=== PATIENT | male | born 1940 | race Caucasian/White ===

== ENCOUNTER 2016-10-05 06:54 | Day surgery (SDC) | payer MEDICARE, OTHER ==
[~2016-10-05] VITALS: Ht 177.8 cm; Wt 85.5 kg
[~2016-10-05 06:54] MED LIST: AMLO10TA2 PO; ASPI-557 PO; CALC-191 PO; FEXO1TAB11 PO; FLUT9.9S EA NOSTRIL; HYDR25TA PO; MULT-933 PO; RED600TA PO; UBID10CA6 PO
[2016-10-05] MEDS ORDERED: PROPOFOL 500mg 50 ML IV ONE (06:59)
--- OUTSIDE RECORDS SUMMARY | 2016-10-05 06:59 | XMS REPORT | Referral Summary ---
Author Author [facility] Organization [facility] Address Unknown Phone Unavailable Care Team Providers Care Well Driller Helper Name Role Phone Asif Holden Primary Care Physician [phone] Encounter [facility] [id number] Date(s): 01/01/15 - 01/01/15 [facility] [address] [place] [address] [facility] Discharge Diagnosis: Hyperthyroidism Discharge Disposition: 01-Home or Self Care Attending Physician: Turner Pruitt MD Admitting Physician: Turner Pruitt MD Vital Signs Most recent to 1 oldest [Reference Range]: Peripheral Pulse 67 bpm Rate [60-100 bpm] (01/01/15 10:31 AM) Blood Pressure 120/60 mmHg [90-140/60-90 mmHg] (01/01/15 10:31 AM) Problem List Condition Effective Dates Status Health Status Informant HTN (hypertension), Active benign(Confirmed) Blood pressure Resolved elevated(Confirmed) Hepatitis(Confirmed) Resolved Jaundice(Confirmed) Resolved Osteoarthritis(Confi Resolved rmed) OTHER ACUTE Resolved INFECTIONS OF EXTERNAL EAR(Confirmed) Varicella Resolved zoster(Confirmed) Allergies, Adverse Reactions, Alerts No Known Medication Allergies Medications Advil mg, Oral, 0 Refill(s) Start Date: 11/08/13 Status: Ordered Sona 24 Hour Allergy mg, Oral, Daily, 0 Refill(s) Start Date: 11/08/13 Status: Ordered amLODIPine 10 mg oral tablet See Instructions, TAKE ONE TABLET BY MOUTH ONCE A DAY, # 30 tabs, 3 Refill(s), eRx: [facility] #[id number], TAKE ONE TABLET BY MOUTH ONCE A DAY Start Date: 10/04/14 Status: Ordered Aspir 81 mg, Oral, Daily, 0 Refill(s) Start Date: 11/08/13 Status: Ordered Calcium 600+D tabs, Oral, TID, 0 Refill(s) Start Date: 11/08/13 Status: Ordered elppa CoQ10 10 mg, Oral, Daily, as per label instructions, 0 Refill(s) Start Date: 11/29/13 Status: Ordered Fish Oil Oral, 0 Refill(s) Start Date: 11/08/13 Status: Ordered flex-sure flex-sure, 0 Refill(s) Start Date: 01/01/15 Status: Ordered garlic 0 Refill(s) Start Date: 11/08/13 Status: Ordered hydrochlorothiazide 25 mg oral tablet See Instructions, TAKE ONE TABLET BY MOUTH EVERY DAY, # 90 tabs, 1 Refill(s), eRx: [facility] #[id number], TAKE ONE TABLET BY MOUTH EVERY DAY Start Date: 12/13/14 Status: Ordered losartan 50 mg oral tablet See Instructions, TAKE ONE TABLET BY MOUTH DAILY, # 30 tabs, 1 Refill(s), eRx: [facility] #[id number], TAKE ONE TABLET BY MOUTH DAILY Start Date: 04/09/15 Status: Ordered methimazole 10 mg oral tablet See Instructions, TAKE 1/2 TABLET BY MOUTH ONCE DAILY, # 15 tabs, 1 Refill(s), eRx: [facility] #[id number], TAKE 1/2 TABLET BY MOUTH ONCE DAILY Start Date: 03/29/15 Status: Ordered Misc Medication 0 Refill(s) Start Date: 02/12/15 Status: Ordered multivitamin Daily, 0 Refill(s) Start Date: 11/08/13 Status: Ordered Pomegranat Supplement Pomegranat Supplement, 0 Refill(s) Start Date: 07/05/14 Status: Ordered red yeast rice mg, Oral, Daily, 0 Refill(s) Start Date: 11/08/13 Status: Ordered Results No data available for this section Immunizations Vaccine Date Refusal Reason hepatitis B adult vaccine 12/15/05 hepatitis B adult vaccine 11/05/05 influenza virus vaccine, inactivated1 05/02/14 influenza virus vaccine, live 04/21/13 influenza virus vaccine, live 04/18/12 pneumococcal 23-polyvalent vaccine 11/05/05 tetanus-diphth toxoids (Td) adult/adol 01/10/08 1Result Comment: [05/02/2014] see scaned doc Procedures Procedure Date Related Diagnosis Body Site Colonoscopy H/O vasectomy Social History Social History Type Response Smoking Status Former smoker1 1quit in 1989 Assessment and Plan Extracted from: Title: Office Visit Note Author: Turner Pruitt MD Date: 01/01/15 Assessment/Plan Toxic multinodular goiter. Plan: Continue methimazole 5 mg daily. Monitor thyroid function tests and adjust methimazole as needed. Definitive interventions like thyroidectomy and I-131 therapy discussed. Patient has been very pleased with the result of low dose methimazole and would like to stay on this regimen for now. Return to clinic again in 6 months, sooner if with problems. Extracted from: Title: Ambulatory Patient Education Author: Turner Pruitt MD Date: Family Medicine Hyperthyroidism The thyroid is a large gland located in the lower front part of your neck. The thyroid helps control metabolism. Metabolism is how your body uses food. It controls metabolism with the hormone thyroxine. When the thyroid is overactive, it produces too much hormone. When this happens, these following problems may occur: Nervousness Heat intolerance Weight loss (in spite of increase food intake) Diarrhea Change in hair or skin texture Palpitations (heart skipping or having extra beats) Tachycardia (rapid heart rate) Loss of menstruation (amenorrhea) Shaking of the hands CAUSES Grave's Disease (the immune system attacks the thyroid gland). This is the most common cause. Inflammation of the thyroid gland. Tumor (usually benign) in the thyroid gland or elsewhere. Excessive use of thyroid medications (both prescription and 'natural'). Excessive ingestion of Iodine. DIAGNOSIS To prove hyperthyroidism, your caregiver may do blood tests and ultrasound tests. Sometimes the signs are hidden. It may be necessary for your caregiver to watch this illness with blood tests, either before or after diagnosis and treatment. TREATMENT Short-term treatment There are several treatments to control symptoms. Drugs called beta blockers may give some relief. Drugs that decrease hormone production will provide temporary relief in many people. These measures will usually not give permanent relief. Definitive therapy There are treatments available which can be discussed between you and your caregiver which will permanently treat the problem. These treatments range from surgery (removal of the thyroid), to the use of radioactive iodine (destroys the thyroid by radiation), to the use of antithyroid drugs (interfere with hormone synthesis). The first two treatments are permanent and usually successful. They most often require hormone replacement therapy for life. This is because it is impossible to remove or destroy the exact amount of thyroid required to make a person euthyroid (normal). HOME CARE INSTRUCTIONS See your caregiver if the problems you are being treated for get worse. Examples of this would be the problems listed above. SEEK MEDICAL CARE IF: Your general condition worsens. MAKE SURE YOU: Understand these instructions. Will watch your condition. Will get help right away if you are not doing well or get worse. Document Released: 05/24/2006 Document Revised: 08/15/2012 Document Reviewed: ExitCare Patient Information 2015 [employer], [employer]. This information is not intended to replace advice given to you by your health care provider. Make sure you discuss any questions you have with your health care provider. No follow up information was provided.
--- OUTSIDE RECORDS SUMMARY | 2016-10-05 06:59 | XMS REPORT | Referral Summary ---
Author Author [facility] Organization [facility] Address Unknown Phone Unavailable Care Team Providers Care Surgeon Partner Name Role Phone Asif Holden Primary Care Physician [phone] Encounter [facility] [id number] Date(s): 01/01/15 - 01/01/15 [facility] [address] [place] [address] [facility] Discharge Diagnosis: Hyperthyroidism Discharge Disposition: 01-Home or [...] DAY, # 30 tabs, 3 Refill(s), eRx: [facility] #[id number], TAKE ONE TABLET BY MOUTH ONCE A [...] DAY, # 90 tabs, 1 Refill(s), eRx: [facility] #[id number], TAKE ONE TABLET BY MOUTH EVERY DAY Start Date: 12/13/14 Status: Ordered losartan 50 mg oral tablet See Instructions, TAKE ONE TABLET BY MOUTH DAILY, # 30 tabs, 1 Refill(s), eRx: [facility] #[id number], TAKE ONE TABLET BY MOUTH DAILY Start Date: 04/09/15 Status: Ordered methimazole 10 mg oral tablet See Instructions, TAKE 1/2 TABLET BY MOUTH ONCE DAILY, # 15 tabs, 1 Refill(s), eRx: [facility] #[id number], TAKE 1/2 TABLET BY MOUTH ONCE DAILY [...] 08/15/2012 Document Reviewed: ExitCare Patient Information 2015 [employer], [employer]. This information is not intended to replace advice given to you by your health care provider. Make sure you discuss any questions you have with your health care provider. No follow up information was provided.
[2016-10-05] MEDS ORDERED: LIDOCAINE 1% (10mg/ml) 2ml SDV INJ ONE (07:00)
[2016-10-05] MEDS ORDERED: LR 1,000 ML IV SCH (07:00)
--- OUTSIDE RECORDS SUMMARY | 2016-10-05 07:00 | XMS REPORT | Referral Summary ---
Author Author [facility] Organization [facility] Address Unknown Phone Unavailable Care Team Providers Care Product Marketing Programs Manager Name Role Phone Asif Holden Primary Care Physician [phone] Encounter [facility] [id number] Date(s): 01/01/15 - 01/01/15 [facility] [address] [place] [address] [facility] Discharge Diagnosis: Hyperthyroidism Discharge Disposition: 01-Home or [...] # 30 tabs, 3 Refill(s), eRx: [facility] #[id number], TAKE ONE TABLET BY MOUTH ONCE A [...] # 90 tabs, 1 Refill(s), eRx: [facility] #[id number], TAKE ONE TABLET BY MOUTH EVERY DAY Start Date: 12/13/14 Status: Ordered losartan 50 mg oral tablet See Instructions, TAKE ONE TABLET BY MOUTH DAILY, # 30 tabs, 1 Refill(s), eRx: [facility] #[id number], TAKE ONE TABLET BY MOUTH DAILY Start Date: 04/09/15 Status: Ordered methimazole 10 mg oral tablet See Instructions, TAKE 1/2 TABLET BY MOUTH ONCE DAILY, # 15 tabs, 1 Refill(s), eRx: [facility] #[id number], TAKE 1/2 TABLET BY MOUTH ONCE DAILY [...] 08/15/2012 Document Reviewed: ExitCare Patient Information 2015 [employer], [employer]. This information is not intended to replace advice given to you by your health care provider. Make sure you discuss any questions you have with your health care provider. No follow up information was provided.
--- OUTSIDE RECORDS SUMMARY | 2016-10-05 07:00 | XMS REPORT | Continuity of Care Document ---
Author Author [facility] Address Unknown Phone Unavailable Care Team Providers Care Revenue Accounting Manager Name Role Phone Snow Nguyen KIMBER Unavailable Payers Payer name Insurance type Covered libertarian ID Authorization(s) Unknown Problems Condition Effective Dates (start - stop) Clinical Status Thyrotoxicosis without mention of goiter or other cause, and without mention of thyrotoxic crisis or storm - *Stable Influenza Vaccine - Hypertension, Benign - *Chronic Thyrotoxicosis without mention of goiter or other cause, and without mention of thyrotoxic crisis or storm - *Routine Hypertension, Unspecified - *Chronic Right facial swelling - *Acute Thyrotoxicosis without mention of goiter or other cause, and without mention of thyrotoxic crisis or storm - *Routine Thyrotoxicosis without mention of goiter or other cause, and without mention of thyrotoxic crisis or storm - Improved BENIGN HYPERTENSION - Thyrotoxicosis without mention of goiter or other cause, and without mention of thyrotoxic crisis or storm - *Routine Thyrotoxicosis without mention of goiter or other cause, and without mention of thyrotoxic crisis or storm - *Routine Family History Family Member Diagnosis Age At Onset Status Mother (Unknown) of infection Yes Father (Unknown) Suicide Yes Brother (Unknown) brain aneurysm Yes Sister (Unknown) CVA (Stroke) Yes Social History Social History Element Description Quantity Unknown Allergies, Adverse Reactions, Alerts Substance Reaction Severity Status Unknown Medications Medication Instructions Dosage Effective Dates (start - stop) Status benazepril 40 mg tablet Take 1 tablet by mouth every day. - Active Advil 200 mg tablet take 1 - 2 Tablet (200MG) by oral route 2 times every day as needed with food 200 MG - Active calcium 500 mg tablet take 1 by Oral route every day 0 - Active take by Oral route every day - Active Pomegranate-[employer] & Grape Seed 100 mg-60 mg-5 mg-5 mg capsule take 1 tablet by oral route every day. - Active garlic capsule take 1 by Oral route every day 0 - Active multivitamin tablet take 1 Tablet by Oral route every day 0 - Active Aspir-81 81 mg tablet,delayed release take 1 tablet (81MG) by oral route every day 81 MG - Active red yeast rice 600 mg tablet take 1 tablet by oral route every day. - Active glucosamine-chondroitin 500 mg-400 mg tablet take 1 tablet by oral route every day. - Active [place] 500 mg capsule take 1 capsule by oral route every day. - Active Sona 180 mg tablet take 1 tablet (180MG) by oral route PRN. 2011 - Active hydrochlorothiazide 25 mg tablet Take 1 tablet by mouth every day. 2012 - Active methimazole 10 mg tablet take 1 tablet (10MG) by oral route every day 10 MG - Active amlodipine 5 mg tablet Take 1 tablet by mouth every day. - Active Fish Oil 1,000 mg capsule take 1 Tablet by Oral route every day 0 - Active Benadryl 25 mg capsule take 1 Capsule (25MG) by oral route every bedtime as needed 25 MG - Active Immunizations Vaccine Date Status Comments Flu (split) (3 yrs or older) completed flu (split) (3 yrs or older) completed - Completed reason: public agency Results Test Name Date and Time Measure Units Reference Range Abnormal Flag Comments Unknown Vital Signs Date / Time: Height Weight Pulse Rate Blood Pressure Temperature /15:45:00 71.22 in 182.80 lbs 76 /min 140/88 mm[Hg] Procedures Procedure Date Unknown Encounters Encounter Location Date Patient Visit [facility] Patient Visit [facility] Patient Visit [facility] Patient Visit [facility] Patient Visit [facility] Patient Visit [facility] Patient Visit [facility] Patient Visit [facility] Patient Visit [facility] Patient [facility] Patient Visit [facility] Patient Visit [facility] Advance Directives Directive Effective Date Unknown
--- OUTSIDE RECORDS SUMMARY | 2016-10-05 07:00 | XMS REPORT | Referral Summary ---
Author Author [facility] Organization [facility], [facility] Address Unknown Phone Unavailable Care Team Providers Care Supply Chain Business Analyst Name Role Phone Asif Holden Primary Care Physician [phone] Encounter [facility] Date(s): 02/12/15 - 02/12/15 [facility], Family [address] [place] [id number] Discharge Diagnosis: HTN (hypertension), benign Discharge Disposition: 01-Home or Self Care Attending Physician: Ej Holden MD Admitting Physician: Ej Holden MD Vital Signs Most recent to 1 oldest [Reference Range]: Temperature Tympanic 36.4 degC [36.6-38.1 degC] *LOW* (02/12/15 1:52 PM) Peripheral Pulse 67 bpm Rate [60-100 bpm] (02/12/15 1:52 PM) Blood Pressure 138/85 mmHg [90-140/60-90 mmHg] (02/12/15 1:52 PM) Problem List Condition Effective Dates Status Health Status Informant HTN (hypertension), Active benign(Confirmed) Blood pressure Resolved elevated(Confirmed) Hepatitis(Confirmed) Resolved Jaundice(Confirmed) Resolved Osteoarthritis(Confi Resolved rmed) OTHER ACUTE Resolved INFECTIONS OF EXTERNAL EAR(Confirmed) Seasonal allergic Active rhinitis(Confirmed) Varicella Resolved zoster(Confirmed) Allergies, Adverse Reactions, Alerts No Known Medication Allergies Medications Advil mg, Oral, 0 Refill(s) Start Date: 11/08/13 Status: Ordered Sona 24 Hour Allergy mg, Oral, Daily, 0 Refill(s) Start Date: 11/08/13 Status: Ordered amLODIPine 10 mg oral tablet See Instructions, TAKE ONE TABLET BY MOUTH ONCE A DAY, # 30 tabs, 3 Refill(s), Pharmacy: [facility] #[id number], TAKE ONE TABLET BY MOUTH ONCE A DAY Start Date: 06/04/15 Status: Ordered Aspir 81 mg, Oral, Daily, 0 Refill(s) Start Date: 11/08/13 Status: Ordered Calcium 600+D tabs, Oral, TID, 0 Refill(s) Start Date: 11/08/13 Status: Ordered elppa CoQ10 10 mg, Oral, Daily, as per label instructions, 0 Refill(s) Start Date: 11/29/13 Status: Ordered Fish Oil Oral, 0 Refill(s) Start Date: 11/08/13 Status: Ordered flex-sure flex-sure, 0 Refill(s) Start Date: 01/01/15 Status: Ordered Flonase 50 mcg/inh nasal spray 2 sprays, Nasal, BID, # 16 g, 0 Refill(s), other reason (Rx) Start Date: 08/15/15 Status: Ordered garlic 0 Refill(s) Start Date: 11/08/13 Status: Ordered hydrochlorothiazide 25 mg oral tablet 25 mg 1 tabs, Oral, Daily, # 90 tabs, 1 Refill(s), Pharmacy: [facility] # [id number], 1 tabs Oral Daily Start Date: 06/17/15 Status: Ordered losartan 50 mg oral tablet 50 mg 1 tabs, Oral, Daily, # 30 tabs, 3 Refill(s), Pharmacy: [facility] # [id number], 1 tabs Oral Daily Start Date: 06/12/15 Status: Ordered methimazole 10 mg oral tablet See Instructions, TAKE 1/2 TABLET BY MOUTH ONCE DAILY, # 15 tabs, 3 Refill(s), Pharmacy: [facility] #[id number], TAKE 1/2 TABLET BY MOUTH ONCE DAILY Start Date: 07/04/15 Status: Ordered Misc Medication 0 Refill(s) Start Date: 02/12/15 Status: Ordered multivitamin Daily, 0 Refill(s) Start Date: 11/08/13 Status: Ordered Pomegranat Supplement Pomegranat Supplement, 0 Refill(s) Start Date: 07/05/14 Status: Ordered red yeast rice mg, Oral, Daily, 0 Refill(s) Start Date: 11/08/13 Status: Ordered Results Chemistry Most recent to 1 oldest [Reference Range]: Sodium Lvl [135-144 142 mEq/L mEq/L] (02/12/15 3:10 PM) Potassium Lvl 3.6 mEq/L [3.5-5.2 mEq/L] (02/12/15 3:10 PM) Chloride [99-111 105 mEq/L mEq/L] (02/12/15 3:10 PM) CO2 [23-31 mEq/L] 29 mEq/L (02/12/15 3:10 PM) AGAP [3-20] 8 (02/12/15 3:10 PM) BUN [8-26 mg/dL] 13 mg/dL (02/12/15 3:10 PM) Glucose Lvl [70-99 90 mg/dL mg/dL] (02/12/15 3:10 PM) Creatinine Lvl 0.97 mg/dL [0.72-1.25 mg/dL] (02/12/15 3:10 PM) eGFR [>60 mL/min] >60 mL/min 1 (02/12/15 3:10 PM) Calcium Lvl 9.9 mg/dL [8.9-10.5 mg/dL] (02/12/15 3:10 PM) 1Result Comment: Multiply eGFR results by 1.21 for race. Immunizations Vaccine Date Refusal Reason hepatitis B adult vaccine 12/15/05 hepatitis B adult vaccine 11/05/05 influenza virus vaccine, inactivated1 04/18/15 influenza virus vaccine, inactivated2 05/02/14 influenza virus vaccine, live 04/21/13 influenza virus vaccine, live 04/18/12 pneumococcal 23-polyvalent vaccine 11/05/05 tetanus-diphth toxoids (Td) adult/adol 01/10/08 1Result Comment: [04/18/2015] [facility] SEE SCANNED DOCUMENT 2Result Comment: [05/02/2014] see scaned doc Procedures Procedure Date Related Diagnosis Body Site Colonoscopy H/O vasectomy Social History Social History Type Response Smoking Status Former smoker1 1quit in 1989 Assessment and Plan Extracted from: Title: Office Visit Note Author: Ej Holden MD Date: 02/12/15 Assessment/Plan HTN (hypertension), benign Ordered: Office Visit Level 3 Est 11924 Overall stable/doing well. Check BMP is monitoring. Otherwise continue current medications. Follow-up 6 months or as needed. Extracted from: Title: Ambulatory Patient Education Author: Ej Holden MD Date: 02/12/15 Family Medicine Hypertension Hypertension, commonly called high blood pressure, is when the force of blood pumping through your arteries is too strong. Your arteries are the blood vessels that carry blood from your heart throughout your body. A blood pressure reading consists of a higher number over a lower number, such as 110/72. The higher number (systolic) is the pressure inside your arteries when your heart pumps. The lower number (diastolic) is the pressure inside your arteries when your heart relaxes. Ideally you want your blood pressure below 120/80. Hypertension forces your heart to work harder to pump blood. Your arteries may become narrow or stiff. Having hypertension puts you at risk for heart disease, stroke, and other problems. RISK FACTORS Some risk factors for high blood pressure are controllable. Others are not. Risk factors you cannot control include: Race. You may be at higher risk if you are . Age. Risk increases with age. Gender. Men are at higher risk than women before age 45 years. After age 65 , women are at higher risk than men. Risk factors you can control include: Not getting enough exercise or physical activity. Being overweight. Getting too much fat, sugar, calories, or salt in your diet. Drinking too much alcohol. SIGNS AND SYMPTOMS Hypertension does not usually cause signs or symptoms. Extremely high blood pressure (hypertensive crisis) may cause headache, anxiety, shortness of breath , and nosebleed. DIAGNOSIS To check if you have hypertension, your health care provider will measure your blood pressure while you are seated, with your arm held at the level of your heart. It should be measured at least twice using the same arm. Certain conditions can cause a difference in blood pressure between your right and left arms. A blood pressure reading that is higher than normal on one occasion does not mean that you need treatment. If one blood pressure reading is high, ask your health care provider about having it checked again. TREATMENT Treating high blood pressure includes making lifestyle changes and possibly taking medication. Living a healthy lifestyle can help lower high blood pressure. You may need to change some of your habits. Lifestyle changes may include: Following the DASH diet. This diet is high in fruits, vegetables, and whole grains. It is low in salt, red meat, and added sugars. Getting at least 2 1/2 hours of brisk physical activity every week. Losing weight if necessary. Not smoking. Limiting alcoholic beverages. Learning ways to reduce stress. If lifestyle changes are not enough to get your blood pressure under control, your health care provider may prescribe medicine. You may need to take more than one. Work closely with your health care provider to understand the risks and benefits. HOME CARE INSTRUCTIONS Have your blood pressure rechecked as directed by your health care provider. Only take medicine as directed by your health care provider. Follow the directions carefully. Blood pressure medicines must be taken as prescribed. The medicine does not work as well when you skip doses. Skipping doses also puts you at risk for problems. Do not smoke. Monitor your blood pressure at home as directed by your health care provider. SEEK MEDICAL CARE IF: You think you are having a reaction to medicines taken. You have recurrent headaches or feel dizzy. You have swelling in your ankles. You have trouble with your vision. SEEK IMMEDIATE MEDICAL CARE IF: You develop a severe headache or confusion. You have unusual weakness, numbness, or feel faint. You have severe chest or abdominal pain. You vomit repeatedly. You have trouble breathing. MAKE SURE YOU: Understand these instructions. Will watch your condition. Will get help right away if you are not doing well or get worse. Document Released: 05/24/2006 Document Revised: 05/29/2014 Document Reviewed: ExitCare Patient Information 2015 [employer], [employer]. This information is not intended to replace advice given to you by your health care provider. Make sure you discuss any questions you have with your health care provider. No follow up information was provided.
--- OUTSIDE RECORDS SUMMARY | 2016-10-05 07:00 | XMS REPORT | Referral Summary ---
Author Author [facility] Organization [facility] Address Unknown Phone Unavailable Care Team Providers Care Director Of Ancillary Services Name Role Phone Asif Holden Primary Care Physician [phone] Encounter [facility] [id number] Date(s): 01/01/15 - 01/01/15 [facility] [address] [place] [address] [facility] Discharge Diagnosis: Hyperthyroidism Discharge [...] DAY, # 30 tabs, 3 Refill(s), eRx: [facility] #[id number], TAKE ONE TABLET BY MOUTH ONCE A [...] DAY, # 90 tabs, 1 Refill(s), eRx: [facility] #[id number], TAKE ONE TABLET BY MOUTH EVERY DAY Start Date: 12/13/14 Status: Ordered losartan 50 mg oral tablet See Instructions, TAKE ONE TABLET BY MOUTH DAILY, # 30 tabs, 1 Refill(s), eRx: [facility] #[id number], TAKE ONE TABLET BY MOUTH DAILY Start Date: 04/09/15 Status: Ordered methimazole 10 mg oral tablet See Instructions, TAKE 1/2 TABLET BY MOUTH ONCE DAILY, # 15 tabs, 1 Refill(s), eRx: [facility] #[id number], TAKE 1/2 TABLET BY MOUTH ONCE DAILY [...] 08/15/2012 Document Reviewed: ExitCare Patient Information 2015 [email or web address]. This information is not intended to replace advice given to you by your health care provider. Make sure you discuss any questions you have with your health care provider. No follow up information was provided.
--- OUTSIDE RECORDS SUMMARY | 2016-10-05 07:00 | XMS REPORT | Referral Summary ---
Author Organization Unknown Address Unknown Phone Unavailable Care Team Providers Care Content Curator Name Role Phone Nicholas Nguyen Primary Care Physician [phone] Encounter [facility] Date(s): 08/02/14 - 08/02/14 [facility] [address] [place] [address] Discharge Diagnosis: HTN (hypertension), benign Discharge Diagnosis: HTN (hypertension), benign Discharge Disposition: Home or Self Care Attending Physician: Snow Nguyen MD Admitting Physician: Snow Nguyen MD Referring Physician: Snow Nguyen MD Vital Signs Most recent to 1 oldest [Reference Range]: Temperature Tympanic 36.1 degC [36.6-38.1 degC] *LOW* (08/02/14 2:24 PM) Peripheral Pulse 70 bpm Rate [60-100 bpm] (08/02/14 2:24 PM) Respiratory Rate 16 br/min [14-20 br/min] (08/02/14 2:24 PM) Blood Pressure 144/84 mmHg [90-140/60-90 mmHg] *HI* (08/02/14 2:24 PM) Most recent to 1 oldest [Reference Range]: SpO2 96 % (08/02/14 2:24 PM) Problem List Condition Effective Dates Status [...] 0 Refill(s) Start Date: 11/08/13 Status: Ordered Aspir 81 mg, Oral, Daily, 0 Refill(s) Start Date: 11/08/13 Status: Ordered Calcium 600+D tabs, Oral, TID, 0 Refill(s) Start Date: 11/08/13 Status: Ordered elppa CoQ10 10 mg, Oral, Daily, as per label instructions, 0 Refill(s) Special Instructions: as per label instructions Start Date: 11/29/13 Status: Ordered Fish Oil Oral, 0 Refill(s) Start Date: 11/08/13 Status: Ordered garlic 0 Refill(s) Start Date: 11/08/13 Status: Ordered Glucosamine & Chondroitin with MSM tabs, Oral, TID, 0 Refill(s) Start Date: 11/08/13 Status: Ordered hydrochlorothiazide 25 mg oral tablet See Instructions, TAKE ONE TABLET BY MOUTH EVERY DAY, # 90 tabs, 2 Refill(s), eRx: [facility] #[id number], TAKE ONE TABLET BY MOUTH EVERY DAY Special Instructions: TAKE ONE TABLET BY MOUTH EVERY DAY Start Date: 03/20/14 Status: Ordered losartan 50 mg oral tablet See Instructions, TAKE ONE TABLET BY MOUTH DAILY, # 30 tabs, 2 Refill(s), eRx: [facility] #[id number], TAKE ONE TABLET BY MOUTH DAILY Special Instructions: TAKE ONE TABLET BY MOUTH DAILY Start Date: 07/09/14 Status: Ordered methimazole 10 mg oral tablet See Instructions, TAKE 1/2 TABLET BY MOUTH ONCE DAILY, # 15 tabs, 2 Refill(s), eRx: [facility] #[id number], TAKE 1/2 TABLET BY MOUTH ONCE DAILY Special Instructions: TAKE 1/2 TABLET BY MOUTH ONCE DAILY Start Date: 05/30/14 Status: Ordered multivitamin Daily, 0 Refill(s) Start [...] 1989 Assessment and Plan Extracted from: Title: Ambulatory Patient Education Author: Snow Nguyen MD Date: 08/02/14 Family Medicine Hypertension Hypertension is another name for high blood pressure. High blood pressure may mean that your heart needs to work harder to pump blood. Blood pressure consists of two numbers, which includes a higher number over a lower number ( example: 110/72). HOME CARE Make lifestyle changes as told by your doctor. This may include weight loss and exercise. Take your blood pressure medicine every day. Limit how much salt you use. Stop smoking if you smoke. Do not use drugs. Talk to your doctor if you are using decongestants or control pills. These medicines might make blood pressure higher. Females should not drink more than 1 alcoholic drink per day. Males should not drink more than 2 alcoholic drinks per day. See your doctor as told. GET HELP RIGHT AWAY IF: You have a blood pressure reading with a top number of 180 or higher. You get a very bad headache. You get blurred or changing vision. You feel confused. You feel weak, numb, or faint. You get chest or belly (abdominal ) pain. You throw up (vomit ). You cannot breathe very well. MAKE SURE YOU: Understand these instructions. Will watch your condition. Will get help right away if you are not doing well or get worse. Document Released: 11/09/2008 Document Revised: 08/15/2012 Document Reviewed: ExitCare Patient Information 2014 [employer]. No follow up information was provided. Extracted from: Title: Office Visit Note Author: Snow Nguyen MD Date: 08/02/14 Assessment/Plan HTN (hypertension), benign, HTN (hypertension), benign Ordered: Lipid Panel
--- OUTSIDE RECORDS SUMMARY | 2016-10-05 07:00 | XMS REPORT | Referral Summary ---
Author Author [facility] Organization [facility] Address Unknown Phone Unavailable Care Team Providers Care Tong Hooker Name Role Phone Asif Holden Primary Care Physician [phone] Encounter [facility] [id number] Date(s): 01/01/15 - 01/01/15 [facility] [address] [place] [address] [facility] Discharge Diagnosis: Hyperthyroidism Discharge Disposition: 01-Home or [...] DAY, # 30 tabs, 3 Refill(s), Pharmacy: [facility] #[id number], TAKE ONE TABLET BY MOUTH ONCE A [...] Daily, # 90 tabs, 1 Refill(s), Pharmacy: [facility] # [id number], 1 tabs Oral Daily Start Date: 06/17/15 Status: Ordered losartan 50 mg oral tablet 50 mg 1 tabs, Oral, Daily, # 30 tabs, 3 Refill(s), Pharmacy: [facility] # [id number], 1 tabs Oral Daily Start Date: 06/12/15 Status: Ordered methimazole 10 mg oral tablet See Instructions, TAKE 1/2 TABLET BY MOUTH ONCE DAILY, # 15 tabs, 3 Refill(s), Pharmacy: [facility] #[id number], TAKE 1/2 TABLET BY MOUTH ONCE DAILY [...] adult/adol 01/10/08 1Result Comment: [04/18/2015] GIVEN AT [facility] SEE SCANNED DOCUMENT 2Result Comment: [05/02/2014] see [...] 08/15/2012 Document Reviewed: ExitCare Patient Information 2015 [employer]. This information is not intended to replace advice given to you by your health care provider. Make sure you discuss any questions you have with your health care provider. No follow up information was provided.
--- OUTSIDE RECORDS SUMMARY | 2016-10-05 07:00 | XMS REPORT | Referral Summary ---
Author Author [facility] Organization [facility] Address Unknown Phone Unavailable Care Team Providers Care Stemhole Borer Name Role Phone Asif Holden Primary Care Physician [phone] Encounter Date(s): 07/04/15 - 07/04/15 [facility] [address] [place] [address] [facility] Discharge Diagnosis: Hyperthyroidism Discharge Disposition: 01-Home or Self Care Attending Physician: Turner Pruitt MD Admitting Physician: Turner Pruitt MD Vital Signs Most recent to 1 oldest [Reference Range]: Peripheral Pulse 79 bpm Rate [60-100 bpm] (07/04/15 10:52 AM) Blood Pressure 150/90 mmHg [90-140/60-90 mmHg] *HI* (07/04/15 10:52 AM) Problem List Condition Effective Dates Status [...] DAY, # 30 tabs, 3 Refill(s), Pharmacy: [facility] #[id number], TAKE ONE TABLET BY MOUTH ONCE A [...] Daily, # 90 tabs, 1 Refill(s), Pharmacy: [facility] # [id number], 1 tabs Oral Daily Start Date: 06/17/15 Status: Ordered losartan 50 mg oral tablet 50 mg 1 tabs, Oral, Daily, # 30 tabs, 3 Refill(s), Pharmacy: [facility] # [id number], 1 tabs Oral Daily Start Date: 06/12/15 Status: Ordered methimazole 10 mg oral tablet See Instructions, TAKE 1/2 TABLET BY MOUTH ONCE DAILY, # 15 tabs, 3 Refill(s), Pharmacy: [facility] #[id number], TAKE 1/2 TABLET BY MOUTH ONCE DAILY [...] adult/adol 01/10/08 1Result Comment: [04/18/2015] GIVEN AT [facility] SEE SCANNED DOCUMENT 2Result Comment: [05/02/2014] see scaned doc Procedures Procedure Date Related Diagnosis Body Site Colonoscopy H/O vasectomy Social History Social History Type Response Smoking Status Former smoker1 1quit in 1989 Assessment and Plan Extracted from: Title: Office Visit Note Author: Turner Pruitt MD Date: 07/04/15 Assessment/Plan Orders: methimazole, See Instructions, TAKE 1/2 TABLET BY MOUTH ONCE DAILY, # 15 tabs, 3 Refill(s), Pharmacy: [facility] #[id number], TAKE 1/2 TABLET BY MOUTH ONCE DAILY Toxic multinodular goiter. Plan: Continue methimazole 5 mg daily. Monitorthyroid function tests and adjust methimazole as needed. Optionsof I-131 therapy and thyroid surgery have been discussedpreviously. Patient would like to continuewith methimazole andthis would be fine for now. Return to clinic in 6 months,sooner if withnew problems.
--- OUTSIDE RECORDS SUMMARY | 2016-10-05 07:00 | XMS REPORT | Referral Summary ---
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, AND WITHOUT MENTION OF THYROTOXIC CRISIS OR STORM Discharge Diagnosis: HTN (hypertension), benign Discharge Diagnosis: Seasonal allergic rhinitis Discharge Diagnosis: Encounter for medication monitoring Discharge Disposition: 01-Home or Self Care Attending Physician: Ej Holden MD Admitting Physician: Ej Holden MD Vital Signs Most recent to 1 oldest [Reference Range]: Peripheral Pulse 77 bpm Rate [60-100 bpm] (08/15/15 1:15 PM) Blood Pressure 140/90 mmHg [90-140/60-90 mmHg] (08/15/15 1:15 PM) SpO2 98 % (08/15/15 1:15 PM) Problem List Condition Effective Dates Status [...] DAY, # 30 tabs, 3 Refill(s), Pharmacy: [facility] #[id number], TAKE ONE TABLET BY MOUTH ONCE A [...] Refill(s), Pharmacy: [facility] # [id number], 1 tabs Oral Daily Start Date: 06/17/15 Status: Ordered losartan 50 mg oral tablet 50 mg 1 tabs, Oral, Daily, # 30 tabs, 3 Refill(s), Pharmacy: [facility] # [id number], 1 tabs Oral Daily Start Date: 06/12/15 Status: Ordered methimazole 10 mg oral tablet See Instructions, TAKE 1/2 TABLET BY MOUTH ONCE DAILY, # 15 tabs, 3 Refill(s), Pharmacy: [facility] #[id number], TAKE 1/2 TABLET BY MOUTH ONCE DAILY [...] adult/adol 01/10/08 1Result Comment: [04/18/2015] GIVEN AT [facility] SEE SCANNED DOCUMENT 2Result Comment: [05/02/2014] see scaned doc Procedures Procedure Date Related Diagnosis Body Site Colonoscopy H/O vasectomy Social History Social History Type Response Smoking Status Former smoker1 1quit in 1989 Assessment and Plan Extracted from: Title: CRMMP Author: Ej Holden MD Date: 08/15/15 Assessment/Plan HTN (hypertension), benign Lipid screening Polyarticular osteoarthritis Seasonal allergic rhinitis THYROTOXICOSIS WITHOUT MENTION OF GOITER OR OTHER CAUSE, AND WITHOUT MENTION OF THYROTOXIC CRISIS OR STORM Overall he seems to be stable and doing well. We'll plan CMP and CBC as medication monitoring, and also check screening lipids. He'll be due for colonoscopy again in January. Continue current medications with follow-up 6 months or sooner if needed.
--- OUTSIDE RECORDS SUMMARY | 2016-10-05 07:00 | XMS REPORT | Continuity of Care Document ---
Author Author [facility] Address Unknown Phone Unavailable Care Team Providers Care Steel Turner Name Role Phone Snow Nguyen KIMBER Unavailable Payers Payer name Insurance type Covered alliance party ID Authorization(s) Unknown Problems Condition Effective Dates (start - stop) Clinical Status Hypertension, Unspecified - *Chronic Influenza Vaccine - Hypertension, Benign - *Chronic Thyrotoxicosis without mention of goiter or other cause, and without mention of thyrotoxic crisis or storm - *Routine Thyrotoxicosis without mention of goiter or other cause, and without mention of thyrotoxic crisis or storm - *Stable Right facial swelling - *Acute Thyrotoxicosis without [...] Dosage Effective Dates (start - stop) Status Fish Oil 1,000 mg capsule take 1 Tablet by Oral route every day 0 - Active Benadryl 25 mg capsule take 1 Capsule (25MG) by oral route every bedtime as needed 25 MG - Active benazepril 40 mg tablet Take 1 tablet [...] by oral route every day. - Active Warwick Hatch 500 mg capsule take 1 capsule [...] tablet by mouth every day. - Active Immunizations Vaccine Date Status Comments Flu (split) (3 yrs or older) completed flu (split) (3 yrs or older) completed - Completed reason: public agency Results Test Name Date and Time Measure Units Reference Range Abnormal Flag Comments Panel Description: Metabolic Profile Glucose 08:38:00 87 mg/dL 70-99 BUN 08:38:00 16 mg/dL 8-26 Creatinine 08:38:00 0.91 mg/dL 0.72-1.25 Calcium 08:38:00 9.6 mg/dL 8.9-10.5 Sodium 08:38:00 144 mEq/L 135-144 Potassium 08:38:00 3.9 mEq/L 3.5-5.2 Chloride 08:38:00 107 mEq/L 99-111 CO2 08:38:00 30 mEq/L 23-31 Anion Gap 08:38:00 7 3-20 Testing performed at [facility] [address] [place] [address] Verification Specialist Huber Torres MD Panel Description: Lipid Profile-[facility] Cholesterol 08:38:00 186 mg/dL 0-199 Triglycerides 08:38:00 74 mg/dL 0-149 HDL Cholesterol 08:38:00 32 mg/dL 40-84 L LDL Cholesterol 08:38:00 139 mg/dL 0-130 H VLDL Cholesterol 08:38:00 15 mg/dL 0-28 Cardiac Risk 08:38:00 5.8 0.0-5.7 H Testing performed at [facility] [address] [place] [address] Verification Specialist Huber Torres MD Panel Description: Non-HDL Cholesterol-[facility] Non-HDL Cholesterol 08:38:00 154 mg/dL 0-159 Testing performed at [facility] [address] [place], [place] [address] Verification Specialist Huber Torres MD Panel Description: EGFR-[facility] eGFR 08:38:00 >60 mL/min >60 Multiply eGFR results by 1.21 for race.Testing performed at [facility] [address] [place] [address] Verification Specialist Huber Torres MD Vital Signs Date / Time: Height Weight Pulse Rate Blood Pressure Temperature /13:41:00 71.22 in 185.20 lbs 66 /min 140/84 mm[Hg] 96.9 F /16:40:00 132/86 mm[Hg] Procedures Procedure Date Unknown Encounters Encounter Location Date Patient Visit [facility] Patient Visit [facility] Patient Visit [facility] Patient Visit [facility] Patient Visit [facility] Patient Visit [facility] Patient Visit [facility] Patient Visit [facility] [place] Patient [facility] Patient Visit [facility] Patient Visit [facility] Patient Visit [facility] Patient Visit [facility] Endo Patient Visit [facility] Endo Patient Visit [facility] Pravin ROBERSON Advance Directives Directive Effective Date Unknown
--- OUTSIDE RECORDS SUMMARY | 2016-10-05 07:00 | XMS REPORT | Referral Summary ---
Author Organization Unknown Address Unknown Phone Unavailable Care Team Providers Care Box Storage Worker Name Role Phone Nicholas Nguyen Primary Care Physician [phone] Encounter [facility] [id number] Date(s): 07/05/14 - 07/05/14 [facility] [address] [place] [address] [facility] Discharge Diagnosis: Hyperthyroidism Discharge Disposition: Home or Self Care Attending Physician: Turner Pruitt MD Admitting Physician: Turner Pruitt MD Referring Physician: Turner Pruitt MD Vital Signs Most recent to 1 oldest [Reference Range]: Peripheral Pulse 84 bpm Rate [60-100 bpm] (07/05/14 10:06 AM) Blood Pressure 130/70 mmHg [90-140/60-90 mmHg] (07/05/14 10:06 AM) Problem List Condition Effective Dates Status [...] DAY, # 90 tabs, 2 Refill(s), eRx: [facility] #[id number], TAKE ONE TABLET BY MOUTH EVERY DAY Special Instructions: TAKE ONE TABLET BY MOUTH EVERY DAY Start Date: 03/20/14 Status: Ordered losartan 50 mg oral tablet See Instructions, TAKE ONE TABLET BY MOUTH DAILY, # 30 tabs, 2 Refill(s), eRx: [facility] #[id number], TAKE ONE TABLET BY MOUTH DAILY Special Instructions: TAKE ONE TABLET BY MOUTH DAILY Start Date: 04/06/14 Status: Ordered methimazole 10 mg oral tablet See Instructions, TAKE 1/2 TABLET BY MOUTH ONCE DAILY, # 15 tabs, 2 Refill(s), eRx: [facility] #[id number], TAKE 1/2 TABLET BY MOUTH ONCE DAILY [...] Visit Note Author: Turner Pruitt MD Date: 07/05/14 Assessment/Plan Orders: CBC w/ Differential Free T4 Hepatic Function Panel T3 Free TSH 3rd Generation Toxic multinodular goiter, in clinical and chemical remission. Plan: Continue methimazole 10 mg, half a tablet daily. Monitor thyroid function tests, CBC and liver panel. Titrate methimazole as indicated. Options of thyroid surgery and I-131 therapy discussed. For now,i he will stay on methimazole. Return to clinic in 6 months, sooner if with new problems. Extracted from: Title: Ambulatory Patient Education Author: Turner Pruitt MD Date: Family Medicine Hyperthyroidism The thyroid is a large gland located in the lower front part of your neck. The thyroid helps control metabolism. Metabolism is how your body uses food. It controls metabolism with the hormone thyroxine. When the thyroid is overactive , it produces too much hormone. When this happens, these following problems may occur: Nervousness Heat intolerance Weight loss (in spite of increase food intake) Diarrhea Change in hair or skin texture Palpitations (heart skipping or having extra beats) Tachycardia (rapid heart rate) Loss of menstruation (amenorrhea ) Shaking of the hands CAUSES Grave's Disease [...] Released: 05/24/2006 Document Revised: 08/15/2012 Document Reviewed: [facility] Patient Information 2014 [employer] [facility]. No follow up information was provided.
--- OUTSIDE RECORDS SUMMARY | 2016-10-05 07:00 | XMS REPORT | Referral Summary ---
Author Author [facility] Organization [facility] Address Unknown Phone Unavailable Care Team Providers Care Staffing Program Manager Name Role Phone Asif Holden Primary Care Physician [phone] Encounter [facility] [id number] Date(s): 01/01/15 - 01/01/15 [facility] [address] [place] [address] [facility] Discharge Diagnosis: Hyperthyroidism Discharge Disposition: 01-Home or [...] DAY, # 30 tabs, 3 Refill(s), eRx: [facility] #[id number], TAKE ONE TABLET BY MOUTH ONCE A [...] DAY, # 90 tabs, 1 Refill(s), eRx: [facility] #[id number], TAKE ONE TABLET BY MOUTH EVERY DAY Start Date: 12/13/14 Status: Ordered losartan 50 mg oral tablet See Instructions, TAKE ONE TABLET BY MOUTH DAILY, # 30 tabs, 1 Refill(s), eRx: [facility] #[id number], TAKE ONE TABLET BY MOUTH DAILY Start Date: 04/09/15 Status: Ordered methimazole 10 mg oral tablet See Instructions, TAKE 1/2 TABLET BY MOUTH ONCE DAILY, # 15 tabs, 1 Refill(s), eRx: [facility] #[id number], TAKE 1/2 TABLET BY MOUTH ONCE DAILY [...] 08/15/2012 Document Reviewed: ExitCare Patient Information 2015 [employer]. This information is not intended to replace advice given to you by your health care provider. Make sure you discuss any questions you have with your health care provider. No follow up information was provided.
--- OUTSIDE RECORDS SUMMARY | 2016-10-05 07:00 | XMS REPORT | Continuity of Care Document ---
Author Author [facility] Organization [facility] Address Unknown Phone Unavailable Support Name Relationship Address Phone CLARENCE BLANCO MD Caregiver [facility] [address] [place] [address] Unavailable LARA MULLINS MD Caregiver [address] [place] [phone] AUGUST PALOMINO Next Of Kin [address] [place] [address] Insurance Providers Payer Name Policy Number Subscriber Name Relationship Medicare [id number] [employer] Palomino 18 Self Other A Insurance [id number] [employer] 18 Self Problems Medical Problems Problem Onset Date Status Angio-edema Unknown Active Angio-edema Unknown Active Medications Medication Dose Route Sig Days/Qty Instructions Order Date Discontinued Date Status Prednisone 40 Mg PO DAILY 10 Qty 11/29/13 Active Social History No social history. Hospital Discharge Instructions No hospital discharge instructions. Plan of Care No plan of care. Functional Status No functional status results. Allergies, Adverse Reactions, Alerts No known allergies. Immunizations No immunization records. Vital Signs Acute Vital Signs Vital Response Date/Time Temperature (Fahrenheit) 96.3 deg F (96.8 - 99.1) Temperature (Calculated Celsius) 35.17903 degrees C (36.0 - 37.3) Pulse Rate (adult) 65 bpm (60 - 100) Respiratory Rate 20 breaths/min (10 - 20) Blood Pressure 161/96 mm Hg Results No known relevant diagnostic tests, laboratory data and/or discharge summary. Procedures No known history of procedures. Encounters Encounter Location Date/Time Departed Emergency Room [facility] 11/29/13 1:33am Recent Diagnosis
--- OUTSIDE RECORDS SUMMARY | 2016-10-05 07:00 | XMS REPORT | Referral Summary ---
Author Organization Unknown Address Unknown Phone Unavailable Care Team Providers Care Software Sales Representative Name Role Phone Nicholas Nguyen Primary Care Physician [phone] Encounter VC Date(s): 07/12/14 - 07/12/14 [facility], Jesus, Family [address] [place] [address] Discharge Diagnosis: Soreness of tongue Discharge Diagnosis: HTN (hypertension), benign Discharge Disposition: Home or Self Care Attending Physician: Alisa Campos APRN Admitting Physician: Alisa Campos APRN Vital Signs Most recent to 1 oldest [Reference Range]: Temperature Tympanic 36.6 degC [36.6-38.1 degC] (07/12/14 9:33 AM) Peripheral Pulse 78 bpm Rate [60-100 bpm] (07/12/14 9:33 AM) Blood Pressure 130/80 mmHg [90-140/60-90 mmHg] (07/12/14 9:33 AM) Problem List Condition Effective Dates Status [...] DAY, # 90 tabs, 2 Refill(s), eRx: [facility] #[id number], TAKE ONE TABLET BY MOUTH EVERY DAY Special Instructions: TAKE ONE TABLET BY MOUTH EVERY DAY Start Date: 03/20/14 Status: Ordered losartan 50 mg oral tablet See Instructions, TAKE ONE TABLET BY MOUTH DAILY, # 30 tabs, 2 Refill(s), eRx: [facility] #[id number], TAKE ONE TABLET BY MOUTH DAILY Special Instructions: TAKE ONE TABLET BY MOUTH DAILY Start Date: 07/09/14 Status: Ordered methimazole 10 mg oral tablet See Instructions, TAKE 1/2 TABLET BY MOUTH ONCE DAILY, # 15 tabs, 2 Refill(s), eRx: [facility] #[id number], TAKE 1/2 TABLET BY MOUTH ONCE DAILY [...] Extracted from: Title: Ambulatory Patient Education Author: Alisa Campos COMFORT STATION SUPERVISOR Date : 07/12/14 Family Medicine Hypertension Hypertension is another name [...] Released: 11/09/2008 Document Revised: 08/15/2012 Document Reviewed: [facility] Patient Information 2014 [employer]. No follow up information was provided. Extracted from: Title: Office Visit Note Author: Alisa Campos APRN Date: 07/12/14 Assessment/Plan HTN (hypertension), benign RTC in 6mo. Soreness of tongue Tongue looks ok today. Lets watch and wait. Avoid acidic andsalty foods or caffeine. Let us know if s/s persist or worsen. Extracted from: Title: Lab Results Author: Linda Langston LPN Date: 01/17/14 Lab results (BUN, Creat) given to [facility] radiology for upcoming tests.
--- OUTSIDE RECORDS SUMMARY | 2016-10-05 07:00 | XMS REPORT | Referral Summary ---
Author Author [facility], Endocrinology Organization [facility], Endocrinology Address Unknown Phone Unavailable Care Team Providers Care Department Head Name Role Phone Asif Holden Primary Care Physician [phone] Encounter [facility] [id number] Date(s): 01/01/15 - 01/01/15 [facility] [place], Endocrinology [address] [place] [address] [facility] Discharge Diagnosis: Hyperthyroidism Discharge Disposition: 01-Home [...] DAY, # 30 tabs, 3 Refill(s), eRx: [facility] #[id number], TAKE ONE TABLET BY MOUTH ONCE A [...] DAY, # 90 tabs, 1 Refill(s), eRx: [facility] #[id number], TAKE ONE TABLET BY MOUTH EVERY DAY Start Date: 12/13/14 Status: Ordered losartan 50 mg oral tablet See Instructions, TAKE ONE TABLET BY MOUTH DAILY, # 30 tabs, 1 Refill(s), eRx: [facility] #[id number], TAKE ONE TABLET BY MOUTH DAILY Start Date: 04/09/15 Status: Ordered methimazole 10 mg oral tablet See Instructions, TAKE 1/2 TABLET BY MOUTH ONCE DAILY, # 15 tabs, 1 Refill(s), eRx: [facility] #[id number], TAKE 1/2 TABLET BY MOUTH ONCE DAILY [...] 08/15/2012 Document Reviewed: [employer] Patient Information 2015 [employer], [employer]. This information is not intended to replace advice given to you by your health care provider. Make sure you discuss any questions you have with your health care provider. No follow up information was provided.
--- OUTSIDE RECORDS SUMMARY | 2016-10-05 07:00 | XMS REPORT | Referral Summary ---
Author Author [facility], Family Medicine Organization [facility] Address Unknown Phone Unavailable Care Team Providers Care Director Of Special Services Name Role Phone Asif Holden Primary Care Physician [phone] Encounter VC Date(s): 12/28/14 - 12/28/14 [facility] [place], Family [address] [place] [address] Discharge Diagnosis: HTN (hypertension), benign Discharge Diagnosis: Sore throat Discharge Disposition: 01-Home or Self Care Attending Physician: Ej Holden MD Admitting Physician: Ej Holden MD Vital Signs Most recent to 1 oldest [Reference Range]: Temperature Tympanic 37.5 degC [36.6-38.1 degC] (12/28/14 11:22 AM) Peripheral Pulse 74 bpm Rate [60-100 bpm] (12/28/14 11:22 AM) Blood Pressure 142/78 mmHg [90-140/60-90 mmHg] *HI* (12/28/14 11:22 AM) Problem List Condition Effective Dates Status [...] DAY, # 30 tabs, 3 Refill(s), Pharmacy: [facility] #[id number], TAKE ONE TABLET BY MOUTH ONCE A [...] Daily, # 90 tabs, 1 Refill(s), Pharmacy: [facility] # [id number], 1 tabs Oral Daily Start Date: 06/17/15 Status: Ordered losartan 50 mg oral tablet 50 mg 1 tabs, Oral, Daily, # 30 tabs, 3 Refill(s), Pharmacy: [facility] # [id number], 1 tabs Oral Daily Start Date: 06/12/15 Status: Ordered methimazole 10 mg oral tablet See Instructions, TAKE 1/2 TABLET BY MOUTH ONCE DAILY, # 15 tabs, 3 Refill(s), Pharmacy: [facility] #[id number], TAKE 1/2 TABLET BY MOUTH ONCE DAILY [...] vaccine, live 04/21/13 influenza virus vaccine, live 11/12/12 pneumococcal 23-polyvalent vaccine 11/05/05 tetanus-diphth toxoids (Td) adult/adol 01/10/08 1Result Comment: [04/18/2015] [facility] SEE SCANNED DOCUMENT 2Result Comment: [05/02/2014] see scaned doc Procedures Procedure Date Related Diagnosis Body Site Colonoscopy H/O vasectomy Social History Social History Type Response Smoking Status Former smoker1 1quit in 1989 Assessment and Plan Extracted from: Title: Office Visit Note Author: Ej Holden MD Date: 12/29/14 Assessment/Plan HTN (hypertension), benign Today's reading is elevated. I encouraged home monitoring with goal of less than 140/90 Route follow-up if it is not controlled in this range. And otherwise follow-up when necessary. Sore throat Sore throat but fairly negative exam. I suspect that the soreness is due to postnasal drainage. We suggested a trial of Flonase and discussed expectations and appropriate use.
--- OUTSIDE RECORDS SUMMARY | 2016-10-05 07:01 | XMS REPORT | Continuity of Care Document ---
Author Author [facility] Organization [facility] Address Unknown Phone Unavailable Allergies Active Description Code Type Severity Reaction Onset Reported/Identified Relationship to Patient Clinical Status Yes No Known Medication Allergies NKMA N/A N/A 03/09/2014 Medications Problems Procedures Results Encounters ACCT No. Visit Date/Time Discharge Status Pt. Type Provider Facility Loc./Unit Complaint [id number] 05/11/2013 15:38:00 05/11/2013 23 :59:59 [facility] Outpatient [id number] 05/02/2013 07:54:00 05/02/2013 23 :59:59 [facility] Outpatient
--- OUTSIDE RECORDS SUMMARY | 2016-10-05 07:01 | XMS REPORT | Referral Summary ---
Author Author [facility], Family Medicine Organization [facility] Address Unknown Phone Unavailable Care Team Providers Care Executive Business Coach Name Role Phone Asif Holden Primary Care Physician [phone] Encounter Date(s): 02/24/16 - 02/24/16 [facility] [place], [address] [place] [address]- Discharge Diagnosis: HTN (hypertension), benign Discharge Diagnosis: Grief Discharge Diagnosis: Seasonal allergic rhinitis Discharge Diagnosis: Graves disease Discharge Diagnosis: Encounter for medication monitoring Discharge Disposition: 01-Home or Self Care Attending Physician: Ej Holden MD Vital Signs Most recent to 1 oldest [Reference Range]: Peripheral Pulse 87 bpm Rate [60-100 bpm] (02/24/16 1:37 PM) Blood Pressure 138/90 mmHg [90-140/60-90 mmHg] (02/24/16 1:37 PM) SpO2 97 % (02/24/16 1:37 PM) Problem List Condition Effective Dates Status [...] # 30 tabs, 1 Refill(s), eRx: [facility] #[id number], TAKE ONE TABLET BY MOUTH DAILY Start Date: 01/20/16 Status: Ordered Aspir 81 mg, Oral, Daily, [...] Daily, # 90 tabs, 1 Refill(s), Pharmacy: [facility] # [id number], 1 tabs Oral Daily Start Date: 06/17/15 Status: Ordered losartan 50 mg oral tablet See Instructions, TAKE ONE TABLET BY MOUTH DAILY, # 30 tabs, 1 Refill(s), eRx: [facility] #[id number], TAKE ONE TABLET BY MOUTH DAILY Start Date: 01/06/16 Status: Ordered methimazole 10 mg oral tablet See Instructions, TAKE ONE-HALF TABLET BY MOUTH DAILY, # 15 tabs, 2 Refill(s), Pharmacy: [facility] #[id number], pt need to make f/u w [facility] or contact pcp, TAKE ONE-HALF TABLET BY MOUTH DAILY Start Date: 11/21/15 Status: Ordered Misc Medication 0 Refill(s) Start Date: 02/12/15 Status: Ordered multivitamin Daily, 0 Refill(s) Start Date: 11/08/13 Status: Ordered Pomegranat Supplement Pomegranat Supplement, 0 Refill(s) Start Date: 07/05/14 Status: Ordered red yeast rice mg, Oral, Daily, 0 Refill(s) Start Date: 11/08/13 Status: Ordered Results Hematology Most recent to 1 oldest [Reference Range]: WBC [4.8-10.8 6.9 10*3/uL 10*3/uL] (02/24/16 2:53 PM) RBC [4.60-6.20] 5.08 (02/24/16 2:53 PM) Hgb [14.0-18.0 14.4 gm/dL gm/dL] (02/24/16 2:53 PM) Hct [42.0-52.0 %] 42.6 % (02/24/16 2:53 PM) MCV [82.0-99.0 fL] 83.9 fL (02/24/16 2:53 PM) MCH [27.0-32.0 pg] 28.3 pg (02/24/16 2:53 PM) MCHC [32.0-36.0 33.8 gm/dL gm/dL] (02/24/16 2:53 PM) RDW [11.5-14.5 %] 14.4 % (02/24/16 2:53 PM) Platelet [150-400 247 10*3/uL 10*3/uL] (02/24/16 2:53 PM) MPV [8.8-14.8 fL] 10.9 fL (02/24/16 2:53 PM) Immature 0.1 % Granulocytes (02/24/16 2:53 PM) [0.0-1.0 %] Neutrophils [51-75 61 % %] (02/24/16 2:53 PM) Lymphocytes [20-46 26 % %] (02/24/16 2:53 PM) Monocytes [4-11 %] 9 % (02/24/16 2:53 PM) Eosinophils [0-4 %] 3 % (02/24/16 2:53 PM) Basophils [0-2 %] 1 % (02/24/16 2:53 PM) Neutro Absolute 4.25 10*3 [1.90-7.00 10*3] (02/24/16 2:53 PM) Lymph Absolute 1.80 10*3 [0.80-3.30 10*3] (02/24/16 2:53 PM) [place] Absolute 0.60 10*3 [0.30-1.00 10*3] (02/24/16 2:53 PM) Eos Absolute 0.23 10*3 [0.00-0.50 10*3] (02/24/16 2:53 PM) Baso Absolute 0.05 10*3 [0.00-0.20 10*3] (02/24/16 2:53 PM) Chemistry Most recent to 1 oldest [Reference Range]: Sodium Lvl [135-144 143 mEq/L mEq/L] (02/24/16 2:53 PM) Potassium Lvl 3.9 mEq/L [3.5-5.2 mEq/L] (02/24/16 2:53 PM) Chloride [99-111 102 mEq/L mEq/L] (02/24/16 2:53 PM) CO2 [23-31 mEq/L] 29 mEq/L (02/24/16 2:53 PM) AGAP [3-20] 12 (02/24/16 2:53 PM) BUN [8-26 mg/dL] 18 mg/dL (02/24/16 2:53 PM) Glucose Lvl [70-99 99 mg/dL mg/dL] (02/24/16 2:53 PM) Creatinine Lvl 1.05 mg/dL [0.72-1.25 mg/dL] (02/24/16 2:53 PM) eGFR [>60 mL/min] >60 mL/min 1 (02/24/16 2:53 PM) Calcium Lvl 10.0 mg/dL [8.9-10.5 mg/dL] (02/24/16 2:53 PM) 1Result Comment: Multiply eGFR results by 1.21 for race. Immunizations Vaccine Date Refusal Reason hepatitis B adult vaccine 12/15/05 hepatitis B adult vaccine 11/05/05 influenza virus vaccine, inactivated 02/24/16 influenza virus vaccine, inactivated1 04/18/15 influenza virus [...] smoker1 1quit in 1989 Assessment and Plan No data available for this section
[2016-10-05 07:11] VITALS: Ht 177.8 cm; Wt 85.5 kg
[2016-10-05 07:12] VITALS: BP 155/86; PULSE 71; RESP 14; TEMP 98.1; O2SAT 95
[2016-10-05] MEDS ORDERED: METH5TAB6 PO (07:24)
--- NOTE | 2016-10-05 07:30 | ANESPREOP ---
Anesthesia Record Date and Time DATE: 10/05/16 TIME: 07:29 Pre-Op Diagnosis cancer screening Proposed Surgical Procedure colonoscopy NPO since: 0700 Allergies: Coded Allergies: No Known Allergies (Unverified , 10/01/16) Ht/Wt/BMI Height: 5 ' 10.00 " Weight: 85.500 kg BMI: 27.1 kg/m2 Vital Signs Date Time Temp Pulse Resp B/P Pulse Ox O2 Delivery O2 Flow Rate FiO2 10/05/16 07:12 98.1 71 14 155/86 95 Room Air Medications Inpatient Medications Current Medications Medications (Trade) Dose Ordered Sig/Saira Start Time Stop Time Status Last Admin Dose Admin Lactated Ringer's (Lactated Ringers) 1,000 ml @ 30 mls/hr Q24H 10/05/16 07:00 Amlodipine Besylate (Amlodipine Besylate) 10 Mg Tablet, 0.5 TAB PO DAILY, ( Reported) Aspirin (Aspir 81) 81 Mg Tablet.dr, 1 TAB PO DAILY, (Reported) Calcium Carbonate/Vitamin D3 (Calcium + Vitamin D Tablet) 1 Each Tablet, 1 TAB PO TID, (Reported) Fexofenadine/Pseudoephedrine (Sona-D 24 Hour Tablet) 1 Each Tab.er.24h, 1 TAB PO DAILY, (Reported) Fluticasone Propionate (Flonase Allergy Relief 50 mcg/actuation Nasal) 9.9 Ml High View.susp, 2 SPRAY EA NOSTRIL BID PRN for ALLERY SYMPTOMS, (Reported) Hydrochlorothiazide (Hydrochlorothiazide) 25 Mg Tablet, 1 TAB PO DAILY, ( Reported) Methimazole (Methimazole) 5 Mg Tablet, 5 MG PO DAILY, (Reported) Multivitamin (Multi-Day Vitamins) 1 Each Tablet, 1 TAB PO DAILY, (Reported) Red Yeast Rice (Red Yeast Rice) 600 Mg Tablet, 1 TAB PO DAILY, (Reported) Ubidecarenone (Co Q-10) 10 Mg Capsule, 1 CAP PO DAILY, (Reported) Currently on Beta Alejandra: No Medical/Surgical History Anesthesia PMH: Reports: *Hypertension (per h&p), Arthritis (OA per h&p), Hepatitis (hx-resolved per h&p), Thyroid Disease Smoking Status: Former smoker (quit 1989) Has pt. smoked today?: No Use Chewing Tobacco?: No Second Hand Exposure: No Substance Use Type: does not use Alcohol Intake: none Past Surgical History Orthopedic Surgeries: Abdominal Surgeries: Genitourinary Surgeries: Cardiac Surgeries: Endocrine Surgeries: Reproductive Surgeries: Yes - VASECTOMY PER H&P Neurological Surgeries: Ear Surgeries: Nose Surgeries: Throat Surgeries: Other Surgeries: Yes - COLONSCOPY PER H&P Anesthesia Adverse Reactions: FOUND none Family Hx of Anesthesia Advers: none Hx of Motion Sickness: No Pertinent Findings EKG Rhythm: Sinus Rhythm Physical Exam Respiratory: Lungs clear Cardiovascular: FOUND Regular rate, rhythm, FOUND No murmur Airway Assessment Mallampati Score: I TMD: 3 Fingerbreadths Teeth: Chipped Teeth/Crowns Overall Assessment: No Airway Concerns ASA: 2 Plan Anesthesia Plan: TIVA Discussion Discussed risks/options/alternatives of anesthesia and questions answered. Patient consents. Nursing pain assessment noted. Attestation Statement Prior to the delivery of any anesthetic medication, I examined the patient, developed the plan, obtained the patient's consent and discussed the risk and benefits of the procedure with the patient/guardian. LAKISHA LONGO I OBSTETRICAL ANESTHESIOLOGIST October 05, 2016 07:30
[2016-10-05] MEDS: FLEET PHOSPHO-SODA 133 ML ENEMA RECTALLY PRN ×2 (07:47→07:57)
[2016-10-05 09:00] VITALS: BP 83/51; PULSE 64; RESP 16; TEMP 97.8; O2SAT 99
[2016-10-05 09:15] VITALS: BP 115/73; PULSE 66; RESP 16; TEMP 97.5; O2SAT 97
[2016-10-05 09:30] VITALS: BP 126/77; PULSE 60; RESP 16; TEMP 97.5; O2SAT 95
--- NOTE | 2016-10-05 09:33 | ANESPO ---
Post-Op Note Date 10/05/16 Time: 09:32 Status Pt Participated in Evaluation: Pt participated in person Vital Signs Date Time Temp Pulse Resp B/P Pulse Ox O2 Delivery O2 Flow Rate FiO2 10/05/16 09:15 97.5 66 16 115/73 97 Room Air 10/05/16 09:00 5.00 Respiratory Function: Airway patent, Regular respirations Cardiovascular Function: Regular pulse Mental Status: Alert/oriented Pain Level Intensity: 0 Hydration: Taking po fluids Complications during Recovery None apparent Follow-Up Instructions Instructions Per Surgeon LAKISHA LONGO CRNA October 05, 2016 09:33
--- NOTE | 2016-10-05 11:52 | OPNOTEF ---
DATE OF OPERATION 10/05/2016 SURGEON Dario Gudino MD PREOPERATIVE DIAGNOSIS Colorectal cancer surveillance. POSTOPERATIVE DIAGNOSIS Colorectal cancer surveillance, pandiverticulosis, polyp x1 within rectal vault. PROCEDURE Colonoscopy with polypectomy via cold biopsy technique. ANESTHESIA TIVA BRIEF HISTORY/INDICATIONS Mr. Palomino is a 76-year-old gentleman who presents today to [facility] to undergo a colonoscopy to serve as a portion of his overall colorectal cancer surveillance. For completeness please refer to notes included in the patient's chart. FINDINGS Upon colonoscopy, he was found have a few scattered diverticula throughout the entire colon. There was no evidence for angiodysplastic lesions or angel malignancies. The patient was found to have a single polyp within the rectal vault that was on the order of about 5 mm in diameter and removed in its entirety via cold biopsy technique. DESCRIPTION OF PROCEDURE After informed consent was obtained, the patient was brought to the endoscopy suite and placed on the table in the left lateral decubitus position. The patient subsequently underwent total intravenous anesthesia by the nurse political aide per my request. Formal time-out was then completed. Next, a digital rectal examination was performed. Normal sphincter tone. No rectal masses were appreciated. An Olympus colonoscope was inserted in the anus and advanced through the lumen of the colon under direct visualization at all times until the cecum was ascertained. Triangulation of the teniae coli and the ileocecal valve were identified. The scope was then slowly withdrawn, again while maintaining visualization of the lumen at all times. There was no evidence for angiodysplastic lesions or angel malignancies. The patient was found to have a few scattered diverticula throughout the entire colon. Once the colonoscope was withdrawn back into the rectal vault, a single diminutive appearing colonic polyp that was on the order of about 5 mm in diameter was identified. This polyp was grasped and removed in its entirety via cold biopsy technique and submitted for pathologic evaluation. A J-maneuver was then performed. No worrisome perianal pathology was noted. Scope was allowed to straighten and withdrawn through the anal verge. The patient tolerated the procedure without difficulty and was sent back to the preop area in stable condition. We will await the biopsy results from today's single polypectomy and will proceed accordingly with further recommendations thereafter. ANAM
== END 2016-10-05 09:47 | disposition home or self-care (01) ==
LOC: SCU 06:54
PROVIDERS: ATTEND Surgery
DX: Z12.11 Encounter for screening for malignant neoplasm of colon (principal); K62.1 Rectal polyp; K57.30 Diverticulosis of large intestine without perforation or abscess without bleeding; I10 Essential (primary) hypertension; E05.90 Thyrotoxicosis, unspecified without thyrotoxic crisis or storm; J30.2 Other seasonal allergic rhinitis; N40.1 Benign prostatic hyperplasia with lower urinary tract symptoms; Z79.82 Long term (current) use of aspirin; Z79.1 Long term (current) use of non-steroidal anti-inflammatories (NSAID); Z79.899 Other long term (current) drug therapy; Z87.891 Personal history of nicotine dependence
CPT/HCPCS: 45380; A9270; J7120